=== PATIENT | male | born 1995 | race African-American/Black ===

== ENCOUNTER 2022-08-07 16:33 | Inpatient (IN) | payer MEDICAID ==
[~2022-08-07] VITALS: Ht 195.6 cm; Wt 90.1 kg
[2022-08-08 21:54] VITALS: BP 113/72
[2022-08-08] MEDS: HALOPERIDOL 5 MG TABLET PO PRN (23:01)
[2022-08-08] MEDS: LORazepam 2 MG TABLET PO PRN (23:01)
[2022-08-08] MEDS: ZOLPIDEM TARTRATE 10 MG TABLET PO PRN (23:41)
[2022-08-09 06:54] LABS: EOSINOPHILS % (AUTO) 1.7 % (1.0-6.0); HEMATOCRIT 38.1 % (41-53); HEMOGLOBIN 12.5 g/dL (13.5-17.5); LYMPHOCYTES # (AUTO) 1.9 K/uL (1.0-4.8); LYMPHOCYTES % (AUTO) 42.6 % (22.0-44.0); MEAN CORPUSCULAR HEMOGLOBIN 30.4 pg (26.0-34.0); MEAN CORPUSCULAR HGB CONC 32.7 G/dL (31.0-37.0); MEAN CORPUSCULAR VOLUME 93 fL (80-100); MONOCYTES # (AUTO) 0.4 K/uL (0.1-1.0); MONOCYTES % (AUTO) 9.9 % (2.0-9.0); NEUTROPHILS # (AUTO) 1.9 K/uL (1.8-7.7); NEUTROPHILS % (AUTO) 44.8 % (40.0-70.0); PLATELET COUNT (AUTO) 250 K/uL (150-450); RED CELL DISTRIBUTION WIDTH 13.8 % (11.5-14.5)
[2022-08-09 07:15] LABS: HEMOGLOBIN A1C 5.3 % (3.8-5.6)
[2022-08-09 07:16] LABS: FREE T4 (FREE THYROXINE) 1.12 ng/dL (0.76-1.46); THYROID STIMULATING HORMONE 1.41 uIU/mL (0.36-3.74)
[2022-08-09 08:00] VITALS: BP 129/75
[2022-08-09] MEDS ORDERED: NICOTINE 14 MG/24 HOUR PATCH TD ONE (08:15)
[2022-08-09] MEDS: LORazepam 2 MG TABLET PO PRN ×3 (08:22→20:38)
[2022-08-09] MEDS: BACITRACIN 28 GM OINTMENT TP SCH ×2 (08:23→15:53)
[2022-08-09 09:02] LABS: APPEARANCE,URINE CLEAR (CLEAR); BILIRUBIN,URINE NEGATIVE (NEGATIVE); GLUCOSE, URINE (UA) NEGATIVE (NEGATIVE); KETONES,URINE NEGATIVE (NEGATIVE); LEUKOCYTE ESTERASE ,URINE NEGATIVE (NEGATIVE); NITRATE,URINE NEGATIVE (NEGATIVE); OCCULT BLOOD,URINE NEGATIVE (NEGATIVE); PROTEIN,URINE NEGATIVE (NEGATIVE); SPECIFIC GRAVITIY, URINE 1.014 (1.003-1.030); UROBILINOGEN,URINE <=1.0 mg/dL (<=1.0)
[2022-08-09 09:06] LABS: AMPHET/METH SCREEN,URINE NEGATIVE (NEGATIVE); BARBITURATE SCREEN, URINE NEGATIVE (NEGATIVE); BENZODIAZEPINES SCREEN,URINE NEGATIVE (NEGATIVE); CANNABINOID SCREEN,URINE NEGATIVE (NEGATIVE); COCAINE SCREEN,URINE NEGATIVE (NEGATIVE); METHADONE SCREEN, URINE NEGATIVE (NEGATIVE); OPIATE SCREEN,URINE NEGATIVE (NEGATIVE)
[2022-08-09 09:07] LABS: PHENCYCLIDINE SCREEN,URINE NEGATIVE (NEGATIVE)
[2022-08-09] MEDS ORDERED: LOPERAMIDE HCL 2 MG CAPSULE PO PRN (11:00)
[2022-08-09] MEDS ORDERED: IBUPROFEN 400 MG TABLET PO PRN (11:00)
[2022-08-09] MEDS ORDERED: DOCUSATE SODIUM 100 MG CAPSULE PO PRN (11:00)
[2022-08-09] MEDS ORDERED: GuaiFENesin/D-METHORPHAN [SUGAR-FREE] 200-20MG/10 ML SYRUP UDCUP PO PRN (11:00)
[2022-08-09] MEDS ORDERED: PETROLATUM,WHITE 28 GM JELLY TP PRN (11:00)
[2022-08-09] MEDS ORDERED: ACETAMINOPHEN 325 MG TABLET PO PRN (11:00)
[2022-08-09] MEDS ORDERED: MAG HYDROX/AL HYDROX/SIMETH ES 30 ML SUSPENSION UDCUP PO PRN (11:00)
[2022-08-09] MEDS ORDERED: MAGNESIUM HYDROXIDE SUSPENSION 30 ML UDCUP PO PRN (11:00)
[2022-08-09] MEDS ORDERED: CloNIDine HCL 0.1 MG TABLET PO PRN (11:00)
[2022-08-09] MEDS ORDERED: ALBUTEROL SULFATE HFA 90 MCG/PUFF 8 GM INHALER IH PRN (11:00)
[2022-08-09] MEDS ORDERED: ONDANSETRON HCL 4 MG TABLET PO PRN (11:00)
[2022-08-09] MEDS: OLANZapine 5 MG TABLET PO SCH ×2 (11:44→20:38)
[2022-08-09] MEDS: HALOPERIDOL 5 MG TABLET PO PRN (20:38)
[2022-08-09] MEDS: ZOLPIDEM TARTRATE 10 MG TABLET PO PRN (21:37)
[2022-08-10 09:45] VITALS: BP 152/89
[2022-08-10] MEDS: RisperiDONE 2 MG TABLET PO SCH ×2 (10:17→20:16)
[2022-08-10] MEDS: HALOPERIDOL 5 MG TABLET PO PRN ×2 (10:17→18:12)
[2022-08-10] MEDS: LORazepam 2 MG TABLET PO PRN ×3 (10:17→22:41)
[2022-08-10] MEDS: BACITRACIN 28 GM OINTMENT TP SCH ×3 (10:17→17:00)
[2022-08-10] MEDS ORDERED: LORazepam 2 MG/ML VIAL IM ONE (10:30)
[2022-08-10] MEDS ORDERED: HALOPERIDOL LACTATE 5 MG/ML VIAL IM ONE (10:30)
[2022-08-10] MEDS ORDERED: DiphenhydrAMINE HCL 50 MG/ML VIAL IM ONE (10:30)
[2022-08-10] MEDS ORDERED: HALOPERIDOL LACTATE 5 MG/ML VIAL ONE (10:35)
[2022-08-10] MEDS ORDERED: DiphenhydrAMINE HCL 50 MG/ML VIAL ONE (10:35)
[2022-08-10] MEDS ORDERED: LORazepam 2 MG/ML VIAL ONE (10:35)
[2022-08-10 16:04] VITALS: BP 129/77
[2022-08-10] MEDS: NICOTINE 14 MG/24 HOUR PATCH TD PRN (16:54)
[2022-08-10] MEDS: ZOLPIDEM TARTRATE 10 MG TABLET PO PRN (22:41)
[2022-08-11 03:07] LABS: COVID AG,FIA SOURCE NASAL SWAB
[2022-08-11] MEDS: BACITRACIN 28 GM OINTMENT TP SCH ×2 (08:01→16:27)
[2022-08-11] MEDS: RisperiDONE 2 MG TABLET PO SCH ×2 (08:01→20:19)
[2022-08-11] MEDS: LORazepam 2 MG TABLET PO PRN ×2 (08:04→21:31)
[2022-08-11 08:14] VITALS: BP 115/75
[2022-08-11] MEDS: NICOTINE 14 MG/24 HOUR PATCH TD PRN (09:02)
[2022-08-11 17:05] VITALS: BP 118/76
[2022-08-11 17:06] VITALS: BP 118/76
[2022-08-11] MEDS: ZOLPIDEM TARTRATE 10 MG TABLET PO PRN (20:19)
[2022-08-11] MEDS: HALOPERIDOL 5 MG TABLET PO PRN (21:31)
[2022-08-12 08:24] VITALS: BP 115/75
[2022-08-12] MEDS: RisperiDONE 2 MG TABLET PO SCH (09:00)
[2022-08-12] MEDS: LORazepam 2 MG TABLET PO PRN (09:00)
[2022-08-12] MEDS: BACITRACIN 28 GM OINTMENT TP SCH (09:00)
[2022-08-12] MEDS: NICOTINE 14 MG/24 HOUR PATCH TD PRN (10:08)
[2022-08-12] MEDS ORDERED: RISP2TAB86 PO (11:07)
== END 2022-08-12 12:50 | disposition left against medical advice (07) | DRG 750 ==
LOC: 3EI 08-08 20:50 → 3EC 08-10 10:44
PROVIDERS: ADMIT Psychiatry & Neurology Psychiatry; ATTEND Psychiatry & Neurology Psychiatry
DX: F20.0 Paranoid schizophrenia (principal); R45.851 Suicidal ideations; D72.819 Decreased white blood cell count, unspecified; Z20.822 Contact with and (suspected) exposure to COVID-19; G47.00 Insomnia, unspecified; F41.9 Anxiety disorder, unspecified; D64.9 Anemia, unspecified; F19.10 Other psychoactive substance abuse, uncomplicated; Z71.51 Drug abuse counseling and surveillance of drug abuser; Z91.51 Personal history of suicidal behavior
CPT/HCPCS: 80061; 80307; 81003; 83036; 84439; 84443; 85025; J1200; J1630; J2060